=== PATIENT | male | born 1975 | race Caucasian/White ===

== ENCOUNTER 2017-02-18 16:35 | Observation (INO) | payer MEDICARE, MEDICAID ==
[~2017-02-18] VITALS: Ht 170.2 cm; Wt 78.9 kg
[~2017-02-18 16:35] MED LIST: ALPR1TAB2 PO; AMPH20TA2 PO; AMPH30CA6 PO; CARB200T PO; CHLO50TA6 PO; CLON-365 PO; LEVO88TA4 PO; LISI-170 PO; LURA80TA PO; NICO1PAT13 TD; OMEP20TA62 PO; QUET400T PO; QUET400T4 PO; SERT100T PO; ZOLP10TA PO
[2017-02-18 16:52] LABS: DAU SCREEN DISCLAIMER
[2017-02-18 17:24] LABS: HEMOGLOBIN 15.3 g/dL (13.7-18.0); WHITE BLOOD COUNT 9.8 x10^3/uL (3.4-10)
[2017-02-18 17:36] LABS: BLOOD UREA NITROGEN 16 mg/dL (7-18)
[2017-02-18 17:40] LABS: ACETAMINOPHEN < 2 mcg/mL (10-30)
[2017-02-18 21:34] VITALS: BP 133/92
[2017-02-18] MEDS: CARBAMAZEPINE 200 MG TABLET PO SCH (22:15)
[2017-02-19] MEDS: LEVOTHYROXINE 88 MCG TABLET PO SCH (05:30)
[2017-02-19 08:13] VITALS: BP 143/93
[2017-02-19] MEDS: LISINOPRIL 20 MG TABLET PO SCH (08:25)
[2017-02-19] MEDS: CARBAMAZEPINE 200 MG TABLET PO SCH ×2 (08:26→20:32)
[2017-02-19] MEDS ORDERED: QUETIAPINE FUMARATE PO SCH (09:00)
[2017-02-19] MEDS ORDERED: LEVOTHYROXINE 88 MCG TABLET PO SCH (09:00)
[2017-02-19] MEDS ORDERED: QUETIAPINE 200 MG TABLET PO SCH (09:00)
[2017-02-19] MEDS: HALOPERIDOL 5 MG/ML IM PRN (15:30)
[2017-02-19] MEDS: BENZTROPINE 1 MG TABLET PO PRN (15:31)
[2017-02-19 19:55] VITALS: BP 124/81
[2017-02-19] MEDS: QUETIAPINE 200 MG TABLET PO SCH (20:33)
[2017-02-20] MEDS: LEVOTHYROXINE 88 MCG TABLET PO SCH (06:01)
[2017-02-20 08:15] VITALS: BP 113/79
[2017-02-20] MEDS: LISINOPRIL 20 MG TABLET PO SCH (08:48)
[2017-02-20] MEDS: CARBAMAZEPINE 200 MG TABLET PO SCH ×2 (08:48→19:45)
[2017-02-20] MEDS: BENZTROPINE 1 MG TABLET PO PRN (12:47)
[2017-02-20] MEDS: HALOPERIDOL 5 MG/ML IM PRN (12:47)
[2017-02-20] MEDS: QUETIAPINE 200 MG TABLET PO SCH (19:44)
[2017-02-20 20:53] VITALS: BP 119/79
[2017-02-21] MEDS: LEVOTHYROXINE 88 MCG TABLET PO SCH (06:09)
[2017-02-21 07:29] VITALS: BP 120/91
[2017-02-21] MEDS: LISINOPRIL 20 MG TABLET PO SCH (09:09)
[2017-02-21] MEDS: CARBAMAZEPINE 200 MG TABLET PO SCH ×2 (09:10→20:10)
[2017-02-21] MEDS: BENZTROPINE 1 MG TABLET PO PRN (10:39)
[2017-02-21] MEDS: HALOPERIDOL 5 MG/ML IM PRN ×2 (10:39→16:09)
[2017-02-21 19:14] VITALS: BP 117/76
[2017-02-21] MEDS: QUETIAPINE 200 MG TABLET PO SCH (20:10)
[2017-02-22] MEDS: LEVOTHYROXINE 88 MCG TABLET PO SCH (05:57)
[2017-02-22 08:00] VITALS: BP 112/77
[2017-02-22] MEDS: LISINOPRIL 20 MG TABLET PO SCH (08:30)
[2017-02-22] MEDS: CARBAMAZEPINE 200 MG TABLET PO SCH ×2 (08:30→20:46)
[2017-02-22] MEDS: HALOPERIDOL 5 MG/ML IM PRN ×2 (10:59→16:56)
[2017-02-22 19:55] VITALS: BP 111/70
[2017-02-22] MEDS: QUETIAPINE 200 MG TABLET PO SCH (20:46)
[2017-02-23] MEDS: LEVOTHYROXINE 88 MCG TABLET PO SCH (06:10)
[2017-02-23 07:30] VITALS: BP 112/78
[2017-02-23] MEDS: CARBAMAZEPINE 200 MG TABLET PO SCH ×2 (09:14→21:10)
[2017-02-23] MEDS: LISINOPRIL 20 MG TABLET PO SCH (09:14)
[2017-02-23] MEDS: HALOPERIDOL 5 MG/ML IM PRN ×2 (09:37→17:59)
[2017-02-23] MEDS: BENZTROPINE 1 MG TABLET PO PRN ×2 (09:37→17:59)
[2017-02-23 20:44] VITALS: BP 136/89
[2017-02-23] MEDS: QUETIAPINE 200 MG TABLET PO SCH (21:09)
[2017-02-24] MEDS: LEVOTHYROXINE 88 MCG TABLET PO SCH (06:29)
[2017-02-24 08:00] VITALS: BP 114/83
[2017-02-24] MEDS: CARBAMAZEPINE 200 MG TABLET PO SCH ×2 (08:14→21:18)
[2017-02-24] MEDS: LISINOPRIL 20 MG TABLET PO SCH (08:15)
[2017-02-24] MEDS: HALOPERIDOL 5 MG/ML IM PRN (12:41)
[2017-02-24] MEDS ORDERED: OLANZAPINE 10 MG INJ IM PRN ×2 (16:30→16:32)
[2017-02-24] MEDS: OLANZAPINE 10 MG TABLET PO PRN (16:42)
[2017-02-24 19:40] VITALS: BP 104/75
[2017-02-24] MEDS: QUETIAPINE 200 MG TABLET PO SCH (21:16)
[2017-02-25] MEDS: LEVOTHYROXINE 88 MCG TABLET PO SCH (05:45)
[2017-02-25 07:30] VITALS: BP 106/77
[2017-02-25] MEDS: OLANZAPINE 10 MG TABLET PO PRN (07:34)
[2017-02-25] MEDS: LISINOPRIL 20 MG TABLET PO SCH (07:34)
[2017-02-25] MEDS: CARBAMAZEPINE 200 MG TABLET PO SCH ×2 (07:35→20:48)
[2017-02-25] MEDS: HALOPERIDOL 5 MG/ML IM PRN (12:22)
[2017-02-25] MEDS: ACETAMINOPHEN 325 MG TABLET PO PRN (15:31)
[2017-02-25] MEDS: HEPARIN 5,000 UNITS/ML, 1ML SQ SCH (16:24)
[2017-02-25 19:44] VITALS: BP 113/74
[2017-02-25] MEDS: QUETIAPINE 200 MG TABLET PO SCH (20:48)
[2017-02-26] MEDS: HEPARIN 5,000 UNITS/ML, 1ML SQ SCH ×3 (00:30→16:02)
[2017-02-26] MEDS: LEVOTHYROXINE 88 MCG TABLET PO SCH (06:25)
[2017-02-26 08:00] VITALS: BP 105/72
[2017-02-26] MEDS: HALOPERIDOL 5 MG TABLET PO PRN (08:16)
[2017-02-26] MEDS: LISINOPRIL 20 MG TABLET PO SCH (08:16)
[2017-02-26] MEDS: CARBAMAZEPINE 200 MG TABLET PO SCH ×2 (08:21→20:15)
[2017-02-26] MEDS ORDERED: ZOLPIDEM 5MG TABLET PO PRN (18:00)
[2017-02-26] MEDS: ACETAMINOPHEN 325 MG TABLET PO PRN (18:09)
[2017-02-26 19:32] VITALS: BP 113/65
[2017-02-26] MEDS: QUETIAPINE 200 MG TABLET PO SCH (20:15)
[2017-02-27] MEDS: HEPARIN 5,000 UNITS/ML, 1ML SQ SCH ×3 (00:30→15:29)
[2017-02-27] MEDS: LEVOTHYROXINE 88 MCG TABLET PO SCH (05:51)
[2017-02-27 07:31] VITALS: BP 105/77
[2017-02-27] MEDS: ACETAMINOPHEN 325 MG TABLET PO PRN (07:53)
[2017-02-27] MEDS: LISINOPRIL 20 MG TABLET PO SCH (07:53)
[2017-02-27] MEDS: CARBAMAZEPINE 200 MG TABLET PO SCH ×2 (08:43→20:38)
[2017-02-27] MEDS: HALOPERIDOL 5 MG TABLET PO PRN ×2 (08:47→13:24)
[2017-02-27 19:37] VITALS: BP 114/73
[2017-02-27] MEDS: QUETIAPINE 200 MG TABLET PO SCH (20:38)
[2017-02-28] MEDS: HEPARIN 5,000 UNITS/ML, 1ML SQ SCH (00:57)
== END 2017-02-28 01:42 ==
LOC: ED 18:32 → EDIP 20:34 → INTOOBSV 20:34 → 3E 21:06
PROVIDERS: ADMIT Internal Medicine; ATTEND Internal Medicine
DX: R45.851 Suicidal ideations (principal); F23 Brief psychotic disorder; F20.9 Schizophrenia, unspecified; I10 Essential (primary) hypertension; E03.9 Hypothyroidism, unspecified; F17.210 Nicotine dependence, cigarettes, uncomplicated; Z91.5 Personal history of self-harm
CPT/HCPCS: 36415; 80048; 80156; 80307; 80329; 81003; 82040; 84439; 84443; 85025; 93005; 96372; 99285; G0378; J1630; J1644; G0480

== ENCOUNTER 2017-08-03 21:13 | Inpatient (IN) | payer MEDICARE, MEDICAID ==
[~2017-08-03] VITALS: Ht 165.1 cm; Wt 75.0 kg
[~2017-08-03 21:13] MED LIST changes: +LEVO88TA2 PO; +NICO-486 TD; -NICO1PAT13 TD; +QUET200T PO; -SERT100T PO; +SERT100T5 PO; +SERT20OR PO
[2017-08-03 21:49] LABS: BASOPHILS # (AUTO) 0.02 x10^3/uL (0-0.1); BASOPHILS % (AUTO) 0 % (0-1); EOSINOPHILS # (AUTO) 0.12 x10^3/uL (0-0.4); EOSINOPHILS % (AUTO) 1 % (1-7); LYMPHOCYTES # (AUTO) 2.44 x10^3/uL (1-3.4); LYMPHOCYTES % (AUTO) 30 % (22-44); MD NO; MEAN CORPUSCULAR HEMOGLOBIN 32.1 pg (27.5-34.5); MEAN CORPUSCULAR HGB CONC 33.4 g/dL (33.2-36.2); MEAN CORPUSCULAR VOLUME 96.2 fL (81-97); MEAN PLATELET VOLUME 7.3 fL (7.4-10.4); MONOCYTES % (AUTO) 10 % (2-9); NEUTROPHILS # (AUTO) 4.73 x10^3/uL (1.8-6.8); NEUTROPHILS % (AUTO) 58 % (42-75); PLATELET COUNT 310 x10^3/uL (130-400); RED BLOOD COUNT 4.67 x10^6/uL (4.38-5.82); RED CELL DISTRIBUTION WIDTH 13.1 % (9.4-14.8)
[2017-08-03 21:59] LABS: ANION GAP 9 mmol/L (5-15); CALCIUM 7.8 mg/dL (8.5-10.1); CHLORIDE 104 mmol/L (98-107); CREATININE 1.16 mg/dL (0.7-1.3)
[2017-08-03 22:01] LABS: ACETAMINOPHEN < 2 mcg/mL (10-30); SALICYLATE LEVEL < 1.7 mg/dL (2.8-20.0)
[2017-08-03 22:08] LABS: AMPHETAMINE SCREEN, URINE Negative (Negative); BARBITURATE SCREEN, URINE Negative (Negative); BENZODIAZEPINE SCREEN, URINE Positive (Negative); CANNABINOID SCREEN, URINE Negative (Negative); COCAINE SCREEN, URINE Negative (Negative); METHADONE SCREEN, URINE Negative (Negative); OPIATE SCREEN, URINE Negative (Negative)
[2017-08-04] MEDS ORDERED: LORazepam 2 MG/ML, 1ML IM PRN (04:30)
[2017-08-04] MEDS ORDERED: DOCUSATE 100 MG CAPSULE PO PRN (04:30)
[2017-08-04] MEDS ORDERED: ONDANSETRON ODT 4 MG PO PRN (04:30)
[2017-08-04] MEDS ORDERED: NICOTINE 7 MG/24 HR PATCH.TD24 TD SCH (04:30)
[2017-08-04 04:56] LABS: FREE T4 (FREE THYROXINE) 0.89 ng/dL (0.76-1.46); THYROID STIMULATING HORMONE 2.54 mIU/L (0.358-3.740)
[2017-08-04] MEDS ORDERED: LISINOPRIL 20 MG TABLET ONE (08:01)
[2017-08-04] MEDS: LEVOTHYROXINE 88 MCG TABLET PO SCH (09:18)
[2017-08-04] MEDS: SERTRALINE 50MG TABLET PO SCH (09:18)
[2017-08-04] MEDS: LISINOPRIL 20 MG TABLET PO SCH (09:18)
[2017-08-04 20:06] VITALS: BP 126/86
[2017-08-04] MEDS: QUETIAPINE 200 MG TABLET PO SCH (20:39)
[2017-08-05 06:08] LABS: ALANINE AMINOTRANSFERASE 32 U/L (12-78); ALBUMIN 2.5 g/dL (3.4-5.0); ANION GAP 6 mmol/L (5-15); BASOPHILS # (AUTO) 0.04 x10^3/uL (0-0.1); BASOPHILS % (AUTO) 1 % (0-1); CALCIUM 7.5 mg/dL (8.5-10.1); CHLORIDE 109 mmol/L (98-107); CREATININE 0.78 mg/dL (0.7-1.3); EOSINOPHILS # (AUTO) 0.09 x10^3/uL (0-0.4); EOSINOPHILS % (AUTO) 2 % (1-7); LYMPHOCYTES # (AUTO) 1.99 x10^3/uL (1-3.4); LYMPHOCYTES % (AUTO) 34 % (22-44); MD NO; MEAN CORPUSCULAR HEMOGLOBIN 32.6 pg (27.5-34.5); MEAN CORPUSCULAR HGB CONC 34.3 g/dL (33.2-36.2); MEAN PLATELET VOLUME 7.5 fL (7.4-10.4); MONOCYTES # (AUTO) 0.56 x10^3/uL (0.2-0.8); MONOCYTES % (AUTO) 10 % (2-9); NEUTROPHILS # (AUTO) 3.21 x10^3/uL (1.8-6.8); NEUTROPHILS % (AUTO) 55 % (42-75); PLATELET COUNT 255 x10^3/uL (130-400); RED BLOOD COUNT 4.46 x10^6/uL (4.38-5.82); RED CELL DISTRIBUTION WIDTH 13.1 % (9.4-14.8)
[2017-08-05 06:10] LABS: ALKALINE PHOSPHATASE 129 U/L (45-117); BILIRUBIN,TOTAL 0.3 mg/dL (0.2-1.0); TOTAL PROTEIN 5.6 g/dL (6.4-8.2)
[2017-08-05 07:30] VITALS: BP 109/69
[2017-08-05] MEDS: LEVOTHYROXINE 88 MCG TABLET PO SCH (08:37)
[2017-08-05] MEDS: LISINOPRIL 20 MG TABLET PO SCH (08:37)
[2017-08-05] MEDS: NICOTINE 7 MG/24 HR PATCH.TD24 TD SCH (08:37)
[2017-08-05] MEDS: SERTRALINE 50MG TABLET PO SCH (08:37)
[2017-08-05] MEDS: ACETAMINOPHEN 325 MG TABLET PO PRN ×2 (13:33→17:46)
[2017-08-05 20:02] VITALS: BP 136/85
[2017-08-05] MEDS: QUETIAPINE 200 MG TABLET PO SCH (20:06)
[2017-08-06 07:39] VITALS: BP 114/76
[2017-08-06] MEDS: ACETAMINOPHEN 325 MG TABLET PO PRN ×2 (07:39→15:09)
[2017-08-06] MEDS: LEVOTHYROXINE 88 MCG TABLET PO SCH (08:10)
[2017-08-06 08:56] VITALS: BP 129/86
[2017-08-06] MEDS: LISINOPRIL 10 MG TABLET PO SCH (08:58)
[2017-08-06] MEDS: NICOTINE 7 MG/24 HR PATCH.TD24 TD SCH (08:58)
[2017-08-06] MEDS: SERTRALINE 50MG TABLET PO SCH (08:58)
[2017-08-06] MEDS: LORazepam 1MG TABLET PO PRN (16:34)
[2017-08-06 19:24] VITALS: BP 135/91
[2017-08-06] MEDS: QUETIAPINE 200 MG TABLET PO SCH (20:45)
[2017-08-07 07:00] VITALS: BP 108/78
[2017-08-07] MEDS: LISINOPRIL 10 MG TABLET PO SCH (09:37)
[2017-08-07] MEDS: LEVOTHYROXINE 88 MCG TABLET PO SCH (09:38)
[2017-08-07] MEDS: NICOTINE 7 MG/24 HR PATCH.TD24 TD SCH (09:38)
[2017-08-07] MEDS: SERTRALINE 50MG TABLET PO SCH (09:38)
[2017-08-07] MEDS: LORazepam 1MG TABLET PO PRN (15:15)
[2017-08-07] MEDS: ACETAMINOPHEN 325 MG TABLET PO PRN (17:53)
[2017-08-07 19:43] VITALS: BP 117/86
[2017-08-07] MEDS: QUETIAPINE 200 MG TABLET PO SCH (20:23)
[2017-08-08 07:24] VITALS: BP 107/71
[2017-08-08] MEDS: SERTRALINE 100MG TABLET PO SCH (07:43)
[2017-08-08] MEDS: NICOTINE 7 MG/24 HR PATCH.TD24 TD SCH (07:44)
[2017-08-08] MEDS: RISPERIDONE 0.5 MG TABLET PO SCH (07:44)
[2017-08-08] MEDS: LISINOPRIL 10 MG TABLET PO SCH (07:44)
[2017-08-08] MEDS: LEVOTHYROXINE 88 MCG TABLET PO SCH (07:44)
[2017-08-08] MEDS: LORazepam 1MG TABLET PO PRN (15:43)
[2017-08-08] MEDS: ACETAMINOPHEN 325 MG TABLET PO PRN (15:43)
[2017-08-08 19:25] VITALS: BP 126/86
[2017-08-08] MEDS: QUETIAPINE 200 MG TABLET PO SCH (20:09)
[2017-08-09] MEDS: LEVOTHYROXINE 88 MCG TABLET PO SCH (07:01)
[2017-08-09 07:09] VITALS: BP 102/67
[2017-08-09] MEDS: NICOTINE 7 MG/24 HR PATCH.TD24 TD SCH (08:33)
[2017-08-09] MEDS: LISINOPRIL 10 MG TABLET PO SCH (08:33)
[2017-08-09] MEDS: SERTRALINE 100MG TABLET PO SCH (08:34)
[2017-08-09] MEDS: RISPERIDONE 0.5 MG TABLET PO SCH (08:34)
[2017-08-09] MEDS: ACETAMINOPHEN 325 MG TABLET PO PRN ×2 (16:07→20:19)
[2017-08-09] MEDS: LORazepam 1MG TABLET PO PRN (16:08)
[2017-08-09 19:31] VITALS: BP 125/84
[2017-08-09] MEDS: QUETIAPINE 200 MG TABLET PO SCH (20:18)
[2017-08-10] MEDS: LEVOTHYROXINE 88 MCG TABLET PO SCH (06:25)
[2017-08-10 07:24] VITALS: BP 98/64
[2017-08-10] MEDS: RISPERIDONE 0.5 MG TABLET PO SCH (08:08)
[2017-08-10] MEDS: SERTRALINE 100MG TABLET PO SCH (08:08)
[2017-08-10] MEDS: NICOTINE 7 MG/24 HR PATCH.TD24 TD SCH (08:08)
[2017-08-10] MEDS: LISINOPRIL 10 MG TABLET PO SCH (08:09)
[2017-08-10 08:15] VITALS: BP 101/72
[2017-08-10] MEDS: ACETAMINOPHEN 325 MG TABLET PO PRN (12:12)
[2017-08-10] MEDS: LORazepam 1MG TABLET PO PRN (12:12)
[2017-08-10] MEDS: QUETIAPINE 200 MG TABLET PO SCH (20:20)
[2017-08-10 20:22] VITALS: BP 125/79
[2017-08-11] MEDS: LEVOTHYROXINE 88 MCG TABLET PO SCH (06:19)
[2017-08-11] MEDS: NICOTINE 7 MG/24 HR PATCH.TD24 TD SCH (08:06)
[2017-08-11] MEDS: RISPERIDONE 0.5 MG TABLET PO SCH (08:06)
[2017-08-11] MEDS: LISINOPRIL 10 MG TABLET PO SCH (08:07)
[2017-08-11] MEDS: SERTRALINE 100MG TABLET PO SCH (08:07)
[2017-08-11 08:09] VITALS: BP 106/74
== END 2017-08-11 13:29 | DRG 885 ==
LOC: ED 22:22 → OBSVTOIN 08-04 04:14 → INTOOBSV 08-04 04:14 → EDIP 08-04 04:14 → 2N 08-04 16:43
PROVIDERS: ADMIT Internal Medicine; ATTEND Internal Medicine
DX: F25.9 Schizoaffective disorder, unspecified (principal); E44.0 Moderate protein-calorie malnutrition; R45.851 Suicidal ideations; Z91.14 Patient's other noncompliance with medication regimen; E03.9 Hypothyroidism, unspecified; F17.200 Nicotine dependence, unspecified, uncomplicated; F90.2 Attention-deficit hyperactivity disorder, combined type; I10 Essential (primary) hypertension; K21.9 Gastro-esophageal reflux disease without esophagitis; Z79.899 Other long term (current) drug therapy; Z68.27 Body mass index [BMI] 27.0-27.9, adult; Z88.6 Allergy status to analgesic agent; Z88.8 Allergy status to other drugs, medicaments and biological substances
CPT/HCPCS: 36415; 80048; 80053; 80307; 80329; 82040; 84439; 84443; 85025; G0480; Q0177

== ENCOUNTER 2018-09-07 22:08 | Emergency (ER) | payer MEDICAID, MEDICARE ==
[~2018-09-07] VITALS: Ht 170.2 cm; Wt 88.0 kg
[~2018-09-07 22:08] MED LIST changes: -CLON-365 PO; +CLON1TAB11 PO; +SERT100T PO; +SERT100T32 PO; -SERT100T5 PO; -SERT20OR PO
[2018-09-07 22:17] VITALS: BP 144/100
[2018-09-07] MEDS ORDERED: LORazepam 1MG TABLET ONE (23:17)
[2018-09-07] MEDS ORDERED: LORazepam 1MG TABLET PO ONE (23:30)
== END 2018-09-07 23:39 | disposition home or self-care (01) ==
LOC: ED 23:28
DX: Z76.0 Encounter for issue of repeat prescription (principal); F41.9 Anxiety disorder, unspecified; F20.9 Schizophrenia, unspecified; K21.9 Gastro-esophageal reflux disease without esophagitis; I10 Essential (primary) hypertension; F31.9 Bipolar disorder, unspecified; G89.29 Other chronic pain
CPT/HCPCS: 82962; 99283

== ENCOUNTER 2020-04-28 09:55 | Emergency (ER) | payer MEDICARE, MEDICAID ==
[~2020-04-28] VITALS: Ht 170.2 cm; Wt 88.5 kg
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
[2020-04-28 10:45] LABS: BASOPHILS % (AUTO) 0 % (0-1); EOSINOPHILS % (AUTO) 1 % (1-7); LYMPHOCYTES % (AUTO) 19 % (22-44); MEAN CORPUSCULAR HEMOGLOBIN 32.2 pg (27.5-34.5); MEAN CORPUSCULAR HGB CONC 33.9 g/dL (33.2-36.2); MEAN PLATELET VOLUME 6.9 fL (7.4-10.4); MONOCYTES % (AUTO) 7 % (2-9); NEUTROPHILS % (AUTO) 73 % (42-75); PLATELET COUNT 312 x10^3/uL (130-400); RED BLOOD COUNT 5.25 x10^6/uL (4.38-5.82); RED CELL DISTRIBUTION WIDTH 13.2 % (9.4-14.8)
[2020-04-28 10:47] LABS: MD NO
[2020-04-28 10:57] VITALS: BP 146/100
[2020-04-28 10:57] LABS: ALANINE AMINOTRANSFERASE 49 U/L (12-78); ALBUMIN 2.9 g/dL (3.4-5.0); ANION GAP 5 mmol/L (5-15); CALCIUM 8.3 mg/dL (8.5-10.1); CHLORIDE 109 mmol/L (98-107); CREATININE 1.01 mg/dL (0.7-1.3)
[2020-04-28 11:01] LABS: ALKALINE PHOSPHATASE 113 U/L (45-117); BILIRUBIN,TOTAL 0.3 mg/dL (0.2-1.0); TOTAL PROTEIN 6.4 g/dL (6.4-8.2); TROPONIN I < 0.015 ng/mL (0.000-0.045)
== END 2020-04-28 12:18 ==
LOC: ED 10:30
DX: R07.89 Other chest pain (principal); Z20.828 Contact with and (suspected) exposure to other viral communicable diseases; R00.0 Tachycardia, unspecified; I10 Essential (primary) hypertension; G89.29 Other chronic pain; F25.9 Schizoaffective disorder, unspecified; E03.9 Hypothyroidism, unspecified; F17.200 Nicotine dependence, unspecified, uncomplicated; K21.9 Gastro-esophageal reflux disease without esophagitis; Z90.89 Acquired absence of other organs
CPT/HCPCS: 36415; 71045; 80053; 84484; 85025; 87635; 93005; 99285